=== PATIENT | female | born 1965 | race Caucasian/White ===

== ENCOUNTER 2016-07-23 16:55 | Emergency (ER) | payer BC ==
[2016-07-23 17:05] VITALS: BP 113/59
--- NOTE | 2016-07-23 17:51 | UC ---
Throat Pain/Nasal Juan R HPI - HPI Summary HPI Summary: Pt presents with c/o nasal congestion, sore throat, ear ache, fatigue and cough x 2 weeks. Pt states she "just can't seem to shake this" pt did not get flu vaccine this year and denies known exposure to strep throat - History of Current Complaint Chief Complaint: UCGeneralIllness Stated Complaint: SORE THROAT Time Seen by Provider: 07/23/16 17:28 Hx Obtained From: Patient Hx Last Menstrual Period: [id number] ?: No Onset/Duration: Gradual Onset, Lasting Weeks Severity: Mild Cough: Nonproductive Associated Signs & Symptoms: Positive: Dysphagia - Allergies/Home Medications Allergies/Adverse Reactions: Allergies Allergy/AdvReac Type Severity Reaction Status Date / Time Latex Allergy Rash Verified 07/23/16 16:59 environmental Allergy Congestion Uncoded 07/23/16 16:59 PMH/Surg Hx/FS Hx/Imm Hx Previously Healthy: Yes Endocrine History Of: Reports: Thyroid Disease - hypo - Surgical History Surgical History: Yes Surgery Procedure, Year, and Place: 2008 hysterectomy. 2012 Sinus. Ear tubes, tonsilectomy as child. Left pinky surgery 03/2015 - Family History Known Family History: Positive: Other - positive [facility] for URI - Social History Alcohol Use: Occasionally Substance Use Type: None Smoking Status (MU): Never Smoked Tobacco - Immunization History Most Recent Influenza Vaccination: Not utd Most Recent Tetanus Shot: unknown Review of Systems Constitutional: Negative Skin: Negative Eyes: Negative ENT: Sore Throat, Ear Ache Respiratory: Cough Cardiovascular: Negative Gastrointestinal: Negative Genitourinary: Negative Motor: Negative Neurovascular: Negative Musculoskeletal: Myalgia Neurological: Negative Psychological: Negative All Other Systems Reviewed And Are Negative: Yes Physical Exam Triage Information Reviewed: Yes Appearance: Well-Appearing Vital Signs: Initial Vital Signs Temp 98.5 F 07/23/16 17:01 Pulse 60 07/23/16 17:01 Resp 18 07/23/16 17:01 BP 113/59 07/23/16 17:01 Pulse Ox 99 07/23/16 17:01 Eye Exam: Normal ENT Exam: Other ENT: Positive: TM bulging, TM red - bilateral Neck exam: Normal Respiratory Exam: Normal Cardiovascular Exam: Normal Musculoskeletal Exam: Normal Neurological Exam: Normal Psychological Exam: Normal Skin Exam: Normal Throat Pain/Nasal Course/Dx - Differential Dx/Diagnosis Differential Diagnosis/HQI/PQRI: Influenza, Otitis Media, Pharyngitis, Tonsillitis Provider Diagnoses: otitis media left TM Discharge - Discharge Plan Condition: Stable Disposition: HOME Prescriptions: Amoxicillin CAP* [Amoxicillin 500 MG CAP*] 500 mg PO Q12H #14 cap Patient Education Materials: Otitis Media (ED) Referrals: Jayne ANTOINE,Idania [Primary Care Provider] - If Needed (Please follow up with your PCP or return to clinic as needed. )
== END 2016-07-23 18:06 | disposition home or self-care (01) ==
LOC: UCCORT 16:55
DX: H66.92 Otitis media, unspecified, left ear (principal); H72.92 Unspecified perforation of tympanic membrane, left ear
CPT/HCPCS: 87502; 87651; 99212; G0463